=== PATIENT | female | born 1980 | race Caucasian/White ===

== ENCOUNTER 2017-01-31 01:19 | Emergency (ER) | payer OTHER ==
[~2017-01-31] VITALS: Ht 162.6 cm; Wt 79.4 kg
[~2017-01-31 01:19] MED LIST: ENDOCET 5-3251 EACH PO; IBUPROFEN800 MG PO; PERCOCET 5/31 TABLET PO; PRENATAL TABLE1 EAC3 PO; PRILOSEC OTC20 MG PO; STOOL SOFTENER100 MG PO; SYNTHROID100 MCG PO; SYNTHROID88 MCG PO; VITAMIN D31000 UNIT PO; [UNRECOGNIZED DRUG - OTHER] PO
[2017-01-31 02:12] LABS: MCH 29.8 PG (29.0-34.0); MCHC 33.9 G/DL (30.0-36.0); MCV 87.8 FL (83-99); MEAN PLAT.VOLUME 9.8 uM^3 (9.5-12.4); PLATELET COUNT 240 K/uL (156-360); RBC DIS.WIDTH-CV 12.7 % (11.8-14.6); RBC DIS.WIDTH-SD 41.2 % (39-53); WHITE BLOOD COUNT 6.7 K/uL (4.1-10.2)
[2017-01-31 02:23] LABS: CHLORIDE 106 mEq/L (99-109); POTASSIUM 3.5 mEq/L (3.7-5.4); SODIUM 138 mEq/L (136-147)
[2017-01-31 02:25] LABS: GLUCOSE 110 mg/dL (70-99)
[2017-01-31 02:26] LABS: ANION GAP 9 MEQ/L (2-14)
[2017-01-31 02:28] LABS: SERUM ETHYL ALCOHOL < 10 mg/dL
[2017-01-31 02:29] LABS: GFR ESTIMATE (CALCULATED) > 59 mL/min/
[2017-01-31 02:30] LABS: UREA NITROGEN (BUN) 10 mg/dL (9-23)
[2017-01-31] MEDS ORDERED: MECLIZINE HCL25 MG PO (03:10)
[2017-01-31 03:15] VITALS: BP 121/73
== END 2017-01-31 03:28 | disposition home or self-care (01) ==
LOC: EME → EDBD 01:19 → EME 03:28
PROVIDERS: Emergency Medicine
DX: S06.0X9A Concussion with loss of consciousness of unspecified duration, initial encounter (principal); X58.XXXA Exposure to other specified factors, initial encounter; Y93.I1 Activity, roller coaster riding; Y92.831 Amusement park as the place of occurrence of the external cause; R06.02 Shortness of breath; R00.0 Tachycardia, unspecified; R47.81 Slurred speech; E03.9 Hypothyroidism, unspecified; Z87.891 Personal history of nicotine dependence
CPT/HCPCS: 70450; 70496; 70498; 80048; 81003; 84703; 85027; 99281; 99285; G0480; J0780; J1100; J1200; J7030